=== PATIENT | female | born 1980 | race Caucasian/White ===

== ENCOUNTER 2021-12-25 18:54 | Emergency (ER) | payer BC ==
[2021-12-25] MEDS ORDERED: ONDANSETRON ODT4 MG SL (22:31)
== END 2021-12-25 22:53 | disposition home or self-care (01) ==
LOC: ER1 18:54
DX: G43.909 Migraine, unspecified, not intractable, without status migrainosus (principal)
CPT/HCPCS: 70450; 96372; 99283; J3030